=== PATIENT | female | born 1970 | race African-American/Black ===

== ENCOUNTER 2016-07-26 12:51 | Emergency (ER) | payer MEDICAID, OTHER ==
[~2016-07-26] VITALS: Ht 162.6 cm; Wt 76.7 kg
[~2016-07-26 12:51] MED LIST: BENADRYL25 MG ORAL; NKM; REGLAN5 MG ORAL
[2016-07-26] MEDS ORDERED: GABAPENTIN300 MG ORAL (13:18)
[2016-07-26] MEDS ORDERED: TRAMADOL HCL100 M2 ORAL (13:18)
[2016-07-26 13:51] VITALS: BP 125/82
--- NOTE | 2016-07-26 14:29 | Emergency Room Report ---
History of Present Illness General Chief Complaint: Headache Source: Patient Present Illness HPI 46-year-old female presents to emergency department complaining of headache x2 days with history of migraine/tension headaches. Patient states that her headache was progressive onset to 10 out of 10 in severity left-sided pulsatile pain denies photophobia, nausea, vomiting, fevers, chills neck pain or neck stiffness. Patient reports history of headaches and was evaluated by neurologist whom prescribes her Topamax to take regularly. Patient reports in the past that Gabapentin worked well, in addition to tramadol. Patient states she does not see a PCP regularly and she is non-under chronic pain management. She denies fall, dizziness, loss of consciousness. Patient denies , frequency, urgency or incontinence. Denies CP, Palpitations, LOC, AMS, dizziness , Changes in Vision, Sensation, paresthesias, or a sudden severe headache. Allergies: Coded Allergies: No Known Allergies (Unverified , 12/21/15) Patient History Past Medical History: see triage record, migraines Past Surgical History: none Pertinent Family History: none Last Menstrual Period: 07/08/2016 Now: No : 2 Para: 2 Reviewed Nursing Documentation: PMH: Agreed, PSxH: Agreed Nursing Documentation-PMH Past Medical History: No Stated History Review of Systems All Other Systems: negative except mentioned in HPI Physical Exam Vital Signs Date Time Temp Pulse Resp B/P Pulse Ox O2 Delivery O2 Flow Rate FiO2 07/26/16 13:09 98.2 94 16 125/82 100 Room Air Sp02 EP Interpretation: reviewed, normal General Appearance: no apparent distress, alert, GCS 15, non-toxic Head: normocephalic, atraumatic Eyes: bilateral eye PERRL, bilateral eye normal inspection ENT: hearing grossly normal, normal pharynx, no angioedema, normal voice Neck: full range of motion, supple/symm/no masses Respiratory: chest non-tender, lungs clear, normal breath sounds, speaking full sentences Cardiovascular #1: regular rate, rhythm, no edema Gastrointestinal: no rebound Rectal: deferred Genitourinary: normal inspection, no CVA tenderness Musculoskeletal: back normal, gait/station normal, normal range of motion, non- tender, no calf tenderness Neurologic: alert, oriented x3, responsive, motor strength/tone normal, sensory intact, cerebellar normal, speech normal, no pronator, other - negative hoffmans Psychiatric: judgement/insight normal, memory normal, mood/affect normal, no suicidal/homicidal ideation Skin: normal color, no rash, warm/dry, well hydrated Lymphatic: no adenopathy Medical Decision Making PA Attestation Dr. West is my supervising Physician whom patient management has been discussed with. Diagnostic Impression: Primary Impression: Headache Qualified Codes: G44.229 - Chronic tension-type headache, not intractable ER Course Pt. presents to the ED c/o SCHRADER 10/10 x 2 days. Describes typical migraine : pulsatile, left sided, denies N/V, Dizziness, Photophobia, or acute onset. -Patient states she does not want Toradol as it does not work. Patient inquires about morphine. Ddx considered but are not limited to migraine, SAH, Psedudo motor Cerebri, Mass lesion, Cluster SCHRADER, Tension SCHRADER, Post lumbar puncture SCHRADER, drug-seeking, opiate dependence. CURES REPORT: Reviewed shows multiple prescriptions in the last 3 months for by mouth Dilaudid, Dexter and OxyContin, and large quantities of 60 and 90. This is inconsistent with the patient's history of not having PCP or chronic pain management. Vital signs: are WNL, pt. is afebrile H&PE are most consistent with migraine headache, Patient does not exhibit focal neurological deficits. She appears comfortable during physical exam and ED visit. ORDERS: -None required at this time, no PE or HPI elements that suggest advanced imaging. pt has no focal neurological deficits. ED INTERVENTIONS: -10mg Reglan -600mg IBU -400mg Gabapentin -8mg Decadron IM DISCHARGE: At this time pt. is stable for d/c to home. Will provide printed patient care instructions, and any necessary prescriptions. Care plan and follow up instructions have been discussed with the patient prior to discharge. Last Vital Signs Date Time Temp Pulse Resp B/P Pulse Ox O2 Delivery O2 Flow Rate FiO2 07/26/16 13:51 16 125/82 100 Room Air 07/26/16 13:09 98.2 94 Disposition: HOME, SELF-CARE Condition: Stable Scripts Ibuprofen* (MOTRIN*) 600 Mg Tablet 600 MG ORAL THREE TIMES A DAY, #30 TAB 0 Refills Prov: Emmy [email or web address] 07/26/16 Gabapentin* (GABAPENTIN*) 400 Mg Capsule 400 MG ORAL TWICE A DAY, #14 CAP 0 Refills Prov: Emmy Garcia 07/26/16 Referrals: [facility],REFERRING (PCP) Patient Instructions: Tension Headache Additional Instructions: Take medications as directed. !*! Follow up with your Neurologist in 48 hours Return sooner to ED if new symptoms occur, or current symptoms become worse. Emmy Garcia Jul 26, 2016 14:29
[2016-07-26] MEDS ORDERED: Dexamethasone 4mg/ml vial IM ONE (15:15)
[2016-07-26] MEDS ORDERED: GABAPENTIN400 MG ORAL (15:28)
[2016-07-26] MEDS ORDERED: IBUPROFEN600 MG ORAL (15:28)
[2016-07-26 15:29] VITALS: BP 120/79
== END 2016-07-26 15:47 | disposition home or self-care (01) ==
LOC: EMR 13:40
DX: G44.229 Chronic tension-type headache, not intractable (principal)
CPT/HCPCS: 96372; 99283; J1100